=== PATIENT | male | born 1960 | race Caucasian/White ===

== ENCOUNTER → 2021-09-18 | Outpatient (CLI) | payer OTHER ==
[2021-09-18 10:49] LABS: BUN/CREATININE RATIO 22 (0-10)
[2021-09-19 11:13] LABS: CREATININE, URINE 80.1 mg/dL (Not Estab.)
== END ==
LOC: LAB 09:22
PROVIDERS: Emergency Medicine
DX: I10 Essential (primary) hypertension (principal)
CPT/HCPCS: 36415; 80053; 82043; 82570; 83036